=== PATIENT | female | born 1990 | race Caucasian/White ===

== ENCOUNTER 2017-12-22 18:52 | Emergency (ER) | payer MEDICAID ==
[~2017-12-22] VITALS: Ht 170.2 cm; Wt 76.2 kg
[~2017-12-22 18:52] MED LIST: PREN29TA PO
--- NOTE | 2017-12-22 20:43 | PD ---
HPI Chief Complaint Back pain and abdominal cramping Date Seen: Dec 22, 2017 (Neetu Schroeder MD R2) Travel History International Travel<30 Days: No Contact w/Intl Traveler<30Days: No Known Affected Area: No (Neetu Schroeder MD R2) History of Present Illness HPI Patient is a 27-year-old A1 at 34/4 weeks gestation that presents to the [facility] ED as a transfer from [facility] by [facility] with chief complaints of abdominal pain and cramping that began around 10:50 PM last night. Patient states that the cramping occurs every 5 minutes and is 8/10 in intensity. She presented to [facility] this afternoon around 2 PM and a urinalysis was done which was concerning for a UTI. She was treated with Rocephin. She states that her temperature was up to 102F and she felt feverish and had chills. Pt has also had a dry, hoarse cough for a week that happens mostly in the morning. She also complained of headache and nausea but no vomiting. She denies vaginal bleeding, loss of fluid, and abnormal vaginal discharge. She also denies dysuria or itching. She has no blurry vision, chest pain, or shortness of breath. She has mild pedal edema which [place]. Last sexual intercourse was the night before she started having back pain and abdominal pain and she states that she has sexual intercourse regularly. Weeks Gestation: 34 Para: 2 : 4 Miscarriage: 1 (Neetu Schroeder MD R2) History Past Medical History Medical History: Denies Significant Hx (Neetu Schroeder MD) Obstetric History Obstetric History (Neetu Schroeder MD R2) Past Surgical History Narrative Surgical D&C in 2010 (Neetu Schroeder MD) Family History Family History: Negative (Neetu Schroeder MD) Social History Alcohol Use: No Tobacco Use: Yes (half pack per day) Substance Abuse: No (Neetu Schroeder MD) Allergies-Medications (Allergen,Severity, Reaction): Coded Allergies: No Known Allergies (Unverified , 12/22/17) Home Meds Active Scripts Vit-Iron Carbonyl ( Plus Iron 29-1 mg) 29 Mg Iron-1 Mg Tab, 1 TAB PO DAILY for Nutritional Supplement, #30 TAB 6 Refills Prov:Gavin Klein MD, R3 10/26/17 Review of Systems General / Constitutional: Fever, Chills HENT: Headaches Cardiovascular: No: Chest Pain or Discomfort Respiratory: No: Short of Breath Gastrointestinal: Nausea, Abdominal Pain, No: Vomiting Genitourinary: No: Urgency, Dysuria Musculoskeletal: Cramping Skin: No Rash (EkoNeetu MD R2) Physical Exam Narrative GENERAL: Well-nourished, well-developed patient. SKIN: Warm and dry. HEAD: Normocephalic and atraumatic. EYES: No scleral icterus. No injection or drainage. ENT: No nasal drainage noted. Mucous membranes pink. Airway patent. NECK: Supple, trachea midline. No JVD. CARDIOVASCULAR: Regular rate and rhythm without murmurs, gallops, or rubs. RESPIRATORY: Breath sounds equal bilaterally. No accessory muscle use. ABDOMEN/GI: Abdomen soft, non-tender, bowel sounds present, no rebound, no guarding Gravid to 35 weeks size GENITOURINARY: External Genitalia: intact and normal in appearance Cervix: Posterior and thick Dilatation: 1-2 cm Effacement 0% Station: -4 Presentation: [-] Membranes: Intact Uterine Contractions: Present every 2-3 minutes FHT's: Category: I Baseline: 135 Reactive: accels present Variability: moderate Decels: None EXTREMITIES: No cyanosis or edema. BACK: Nontender without obvious deformity. No CVA tenderness. NEUROLOGICAL: Awake and alert. Motor and sensory grossly within normal limits. Five out of 5 muscle strength in all muscle groups. Normal speech. (Neetu Schroeder MD R2) Data Data Vital Signs Reviewed: Yes Orders Orders Vital Signs (Adult) .ON ADMISSION (12/22/17 20:34) ^ Labor Status (12/22/17 20:34) ^ Non Stress Test (12/22/17 20:34) ^ Hydration (12/22/17 20:34) Acetaminophen (Tylenol) (12/22/17 20:45) Labs UA performed at [facility] and was significant for small leukocyte esterase, 6-10 WBC, and rare bacteria with culture pending. However the specimen had 5-10 squamous epithelial cells. Influenza A and B-. CBC shows WBC of 13, H/H of 11.0/33. Chemistry profile significant for AST of 69 and ALT of 77. (Neetu Schroeder MD R2) [facility] Medical Record Reviewed: Yes Interpretation(s) 27-year-old at 34/4 weeks gestation presents with contractions. Plan 1.Intrauterine - heart tones category 1-reassuring 2. contractions -Occurring every 2-3 minutes on the monitor, not in labor based on vaginal exam -Patient already received 1 L LR -Continue monitoring -Oral fluid hydration -Tylenol for pain -Repeat vaginal exam in 2 hours (Neetu Schroeder MD R2) Collaborating MD Comments Patient was seen and reevaluated. Patient is able to tolerate po well and denies contraction pain. Still achy but afebrile. S/[facility], normal wbc Cervix is 1/lg/high so will discharge. Has follow up OB appointment tomorrow Slight elevation in AST with no signs or symptoms of preeclampsia. Recommend recheck in 5-7 days (Carmen Archuleta MD) Neetu Schroeder MD R2 Dec 22, 2017 20:43 Carmen Archuleta MD Dec 22, 2017 22:32
[2017-12-22] MEDS ORDERED: ACETAMINOPHEN 325 MG TAB PO ONE (20:45)
== END 2017-12-22 22:47 | disposition home or self-care (01) ==
LOC: HOBED 18:52
DX: O60.03 Preterm labor without delivery, third trimester (principal); Z3A.34 34 weeks gestation of pregnancy; R05 Cough; R11.0 Nausea; R51 Headache
CPT/HCPCS: 59025